=== PATIENT | male | born 1945 | race Caucasian/White ===

== ENCOUNTER → 2022-11-25 | Outpatient (CLI) | payer MEDICARE, BC, SELFPAY ==
--- NOTE | 2022-11-25 13:31 | MRI_ITS ---
STUDY: MR PELVIS WITH T WITHOUT CONTRAST REASON FOR EXAM: Male, 77 years old. ELEVATED PROSTATE SPECIFIC ANTIGEN TECHNIQUE: Standardized fat and water weighted pulse sequences were obtained in all 3 orthogonal planes, pre-and post contrast administration. 15ml clariscan contrast material was administered intravenously for the contrast portion of the examination. COMPARISON: None. FINDINGS: Normal urinary bladder. Normal visualized colon. Prostate gland: The anterior fibromuscular stroma and central zone appear intact. Diffuse heterogeneity of the prostate gland. No abnormal diffusion signal. Rectum is unremarkable. Levator ani muscle is not disrupted. The distal urethra is surrounded by the low T2 signal intensity muscle which is the external urethral sphincter as noted on the coronal images. The penile bulb is embraced by an intact inferomedial levator ani muscle. No areas of abnormal enhancement. Normal visualized neurovascular bundles. There is no pelvic fluid. There is no pelvic mass lesion or lymphadenopathy. Normal visualized pelvic arteries. Normal osseous structures. Normal abdominal wall. MRI/Pelvis W/WO Contrast IMPRESSION: Heterogeneous prostate gland suggests benign prostatic hypertrophy. No prostatic lesion visualized. Electronically Signed: Stefan Joyner MD at 15:09 EDT ,
[2022-11-27 11:03] LABS: CREATININE FINGERSTICK 0.75 mg/dL (0.70-1.30); EGFR FINGERSTICK > 60 mL/min (>60)
== END | disposition home or self-care (01) ==
PROVIDERS: Referring Provider Nurse Practitioner
DX: R97.20 Elevated prostate specific antigen [PSA] (principal)
CPT/HCPCS: 72197; A9575

== ENCOUNTER → 2022-12-05 | Outpatient (CLI) | payer MEDICARE, BC, SELFPAY ==
--- NOTE | 2022-12-05 | IMM_PTH ---
PATIENT: ALEXANDRO HUMMEL LOC: [facility] U#:[id number] AGE/SX: 77/M ROOM: RE12/05/[address]: Dr. Oj Yanez MD : 1945 BED: DIS: 12/05/2022 SPEC #: [id number] RECD: 12/07/22 14:34 STATUS: MANISHA REQ #: [id number] ALTON: 12/05/22 00:[address]: Oj Yanez DEPT: IMMUNOHISTOCHEMISTRY RECD BY: Cindy Mane ENTERED: 12/07/22 14:35 SP TYPE: IMMUNO OTHR DR: No Primary Care Phys Tissues: C - PROSTATE RIGHT Procedures: P40 (add) 34BE12 (initial) PHYSICIAN & INSTITUTION [place] [id number] SPECIMEN INFORMATION: Tissue Source: C - Right prostate, base, core biopsy Clinical Info: Elevated PSA Specimen Number: [id number] CPT code: 57727, 64678 METHODOLOGY: Deparaffinized sections of prefer/formalin-fixed tissue or PAP/DQ stained slides are incubated with monoclonal/polyclonal antibodies/oligonucleotide probes. Localization is made via biotin free immunoperoxidase method. Appropriate controls are performed and reacted as expected. Results on target cell population are indicated in the following table: RESULTS: ANTIBODY / CLONE RESULT Block C P40 (BC28) positive 34BE12 (34BE12) positive These tests were developed and their performance characteristics determined by [facility]. They may not have been cleared or approved by the U.S. Food and Drug Administration. The FDA has determined that such clearance or approval is not necessary. The above immunohistochemical/dualISH markers are ordered and reviewed by the Pathologist. INTERPRETATION: C. Right prostate, base, core biopsy: Focal high-grade prostatic intraepithelial neoplasia (HGPIN). RAH:tom 12/08/2022
--- NOTE | 2022-12-05 | PROSBIL_PTH ---
PATIENT: ALEXANDRO HUMMEL LOC: [facility] U#:[id number] AGE/SX: 77/M ROOM: RE12/05/[address]: Dr. Oj Yanez MD : 1945 BED: DIS: 12/05/2022 SPEC #: [id number] RECD: 12/06/22 08:57 STATUS: MANISHA RELela #: [id number] ALTON: 12/05/22 00:[address]: Oj Yanez DEPT: SURGICAL PATHOLOGY RECD BY: Daryl Obrien ENTERED: 12/06/22 08:58 SP TYPE: PROST BX FOREST DR: Melba Primary Care Phys Tissues: A - PROSTATE RIGHT B - PROSTATE RIGHT C - PROSTATE RIGHT D - PROSTATE LEFT E - PROSTATE LEFT F - PROSTATE LEFT Procedures: PROSTATE BX HEADER OPERATION: Prostate biopsy PRE-OP DIAGNOSIS: Elevated PSA TISSUE SUBMITTED: A - Right apex, B - Right mid, C - Right base, D - Left apex, E - Left mid, F - Left base MICROSCOPIC DIAGNOSIS A. Right prostate, apex, core biopsy: Prostatic tissue, negative for malignancy. B. Right prostate, mid, core biopsy: Prostatic tissue, negative for malignancy. C. Right prostate, base, core biopsy: Focal high-grade prostatic intraepithelial neoplasia (HGPIN). See comment. D. Left prostate, apex, core biopsy: Prostatic tissue, negative for malignancy. Focal mild chronic inflammation and minimal acute inflammation. E. Left prostate, mid, core biopsy: Prostatic tissue, negative for malignancy. F. Left prostate, base, core biopsy: Prostatic tissue, negative for malignancy. SJ:tom 12/07/2022 COMMENT C. Immunohistochemistry ([id number]) supports the above diagnosis. Case has been reviewed in consultation with Dr. Lovell who concurs with the above diagnosis. IDC:AM MICROSCOPIC DESCRIPTION Slides are reviewed. GROSS DESCRIPTION A - Received is one container designated prostate, right apex. The specimen consists of one elongated fragment of light lawler-white soft tissue measuring 1.5 cm in length and 0.1 cm in diameter. The specimen is totally submitted in one cassette. B - Received is one container designated prostate, right mid. The specimen consists of one elongated fragment of light lawler-white soft tissue measuring 1.2 cm in length and 0.1 cm in diameter. The specimen is totally submitted in one cassette. C - Received is one container designated prostate, right base. The specimen consists of one elongated fragment of light lawler-white soft tissue measuring 1.5 cm in length and 0.1 cm in diameter. Two smaller fragments of lawler soft tissue are also noted measuring 0.2 and 0.3 cm in length and 0.1 cm in diameter. The specimen is totally submitted in one cassette. D - Received is one container designated prostate, left apex. The specimen consists of one elongated fragment of light lawler-white soft tissue measuring 1.4 cm in length and 0.1 cm in diameter. The specimen is totally submitted in one cassette. E - Received is one container designated prostate, left mid. The specimen consists of one elongated fragment of light lawler-white soft tissue measuring 1.0 cm in length and 0.1 cm in diameter. The specimen is totally submitted in one cassette. F - Received is one container designated prostate, left base. The specimen consists of two elongated fragments of light lawler-white soft tissue measuring 0.4 and 0.6 cm in length and 0.1 cm in diameter. The specimen is totally submitted in one cassette. / SJ:rg 12/06/2022 TC:5 CPT: G0146
== END | disposition home or self-care (01) ==
LOC: LABSPEC 16:11
PROVIDERS: Referring Provider Urology; Visit Provider Urology
DX: R97.20 Elevated prostate specific antigen [PSA] (principal)
CPT/HCPCS: 88305; 88341; 88342; G0416

== ENCOUNTER → 2023-06-13 | Outpatient (CLI) | payer MEDICARE, BC, SELFPAY ==
[2023-06-20 14:05] LABS: PSA, Free 1.41 ng/mL; PSA, Free % 17.6 % (.)
== END | disposition home or self-care (01) ==
PROVIDERS: Referring Provider Nurse Practitioner; Visit Provider Nurse Practitioner
DX: R97.20 Elevated prostate specific antigen [PSA] (principal)
CPT/HCPCS: 36415; 84153; 84154